=== PATIENT | male | born 1975 | race Asian ===

== ENCOUNTER 2021-03-11 12:35 | Inpatient (IN) | payer OTHER ==
[2021-03-11 14:09] VITALS: BMI 30.9
[2021-03-11] MEDS ORDERED: METHOCARBAMOL 500 MG TABLET PO PRN (15:54)
[2021-03-11] MEDS ORDERED: MAGNESIUM CITRATE 300 ML BOTTLE PO PRN (15:54)
[2021-03-11] MEDS ORDERED: MENTHOL/PHENOL 1 EACH UD MM PRN (15:54)
[2021-03-11] MEDS ORDERED: BISMUTH SUBSALICYLATE 524 MG/30 ML PO PRN (15:54)
[2021-03-11] MEDS ORDERED: LORazepam 1 MG TABLET PO PRN (15:54)
[2021-03-11] MEDS ORDERED: IBUPROFEN 400 MG TABLET (FP) PO PRN (15:54)
[2021-03-11] MEDS ORDERED: ONDANSETRON *ODT* 4 MG TABLET SL PRN (15:54)
[2021-03-11] MEDS ORDERED: MAG HYDROX/AL HYDROX/SIMETH 30 ML UNIT-DOSE CUP PO PRN (15:54)
[2021-03-11] MEDS ORDERED: MAGNESIUM HYDROX 2400MG/30ML ORAL SUSPENSION 30 ML CUP PO PRN (15:54)
[2021-03-11] MEDS ORDERED: ACETAMINOPHEN 325 MG TABLET (FP) PO PRN ×2 (15:54)
[2021-03-11] MEDS: hydrOXYzine PAMOATE 25 MG CAPSULE (FP) PO SCH ×2 (18:10→22:22)
[2021-03-11] MEDS: LORazepam 2 MG TABLET PO SCH ×2 (18:10→22:22)
[2021-03-11] MEDS: MELATONIN 5 MG TABLETS PO SCH (22:22)
[2021-03-11] MEDS: THIAMINE HCL 100 MG TABLET (FP) PO SCH (22:22)
[2021-03-11] MEDS: GABAPENTIN 400 MG CAPSULE PO SCH (22:22)
[2021-03-12] MEDS: LORazepam 2 MG TABLET PO SCH ×4 (06:25→22:06)
[2021-03-12] MEDS: GABAPENTIN 400 MG CAPSULE PO SCH ×3 (06:26→22:31)
[2021-03-12] MEDS: hydrOXYzine PAMOATE 25 MG CAPSULE (FP) PO SCH ×2 (06:26→10:46)
[2021-03-12 10:06] LABS: HEMATOCRIT 36.1 % (35.4-49); HEMOGLOBIN 12.4 GM/dL (11.7-16.9); MCH 33.2 pg (25.7-33.7); MCHC 34.3 g/dl (32.0-35.9); MEAN CELL VOLUME 96.8 fl (80-96); MEAN PLT VOLUME 7.9 fl (7.5-11.1); PLATELET COUNT 145 K/MM3 (134-434); RBC 3.73 M/mm3 (4.00-5.60); RDW 14.1 % (11.9-15.9); WHITE BLOOD COUNT 5.5 K/mm3 (4.0-10.0)
[2021-03-12] MEDS ORDERED: hydrOXYzine PAMOATE 25 MG CAPSULE (FP) PO PRN (10:13)
[2021-03-12 10:14] LABS: ALBUMIN 3.8 g/dl (3.4-5.0); BLOOD UREA NITROGEN 8.3 mg/dL (7-18)
[2021-03-12 10:15] LABS: BILIRUBIN,TOTAL 0.6 mg/dL (0.2-1)
[2021-03-12 10:16] LABS: TOT PROT 8.2 g/dl (6.4-8.2)
[2021-03-12 10:18] LABS: CALCIUM 7.8 mg/dL (8.5-10.1); CREATININE 0.8 mg/dL (0.55-1.3)
[2021-03-12] MEDS: PRENATAL VITAMINS W/ FOLIC ACID TABLET (FP) PO SCH (10:46)
[2021-03-12] MEDS: FOLIC ACID 1 MG TABLET (FP) PO SCH (10:46)
[2021-03-12 11:34] LABS: HIV INTERPRETATION NEGATIVE (NEGATIVE)
[2021-03-12] MEDS: THIAMINE HCL 100 MG TABLET (FP) PO SCH (22:04)
[2021-03-12] MEDS: MELATONIN 5 MG TABLETS PO SCH (22:04)
[2021-03-13] MEDS: GABAPENTIN 400 MG CAPSULE PO SCH ×3 (06:04→22:50)
[2021-03-13] MEDS: LORazepam 1 MG TABLET PO SCH ×4 (06:04→22:51)
[2021-03-13] MEDS: FOLIC ACID 1 MG TABLET (FP) PO SCH (10:19)
[2021-03-13] MEDS: PRENATAL VITAMINS W/ FOLIC ACID TABLET (FP) PO SCH (10:19)
[2021-03-13] MEDS ORDERED: AMMONIUM LACTATE 12% LOTION 225 GM BOTTLE TP SCH (11:45)
[2021-03-13] MEDS: MELATONIN 5 MG TABLETS PO SCH (22:50)
[2021-03-13] MEDS: THIAMINE HCL 100 MG TABLET (FP) PO SCH (22:50)
[2021-03-14] MEDS ORDERED: LORazepam 0.5 MG TABLET PO PRN
[2021-03-14] MEDS: LORazepam 0.5 MG TABLET PO SCH ×4 (05:09→22:33)
[2021-03-14] MEDS: GABAPENTIN 400 MG CAPSULE PO SCH ×3 (05:10→22:33)
[2021-03-14 08:06] LABS: SARS-CoV-2 NAA Not Detected (Not Detected)
[2021-03-14] MEDS: PRENATAL VITAMINS W/ FOLIC ACID TABLET (FP) PO SCH (10:51)
[2021-03-14] MEDS: FOLIC ACID 1 MG TABLET (FP) PO SCH (10:51)
[2021-03-14] MEDS: MELATONIN 5 MG TABLETS PO SCH (22:33)
[2021-03-14] MEDS: THIAMINE HCL 100 MG TABLET (FP) PO SCH (22:33)
[2021-03-15] MEDS ORDERED: LORazepam 0.5 MG TABLET PO ONE (05:00)
[2021-03-15] MEDS: GABAPENTIN 400 MG CAPSULE PO SCH (05:15)
[2021-03-15 09:11] VITALS: BP 142/97; PULSE 75; TEMP 96.9
[2021-03-15] MEDS: FOLIC ACID 1 MG TABLET (FP) PO SCH (12:24)
[2021-03-15] MEDS: PRENATAL VITAMINS W/ FOLIC ACID TABLET (FP) PO SCH (12:24)
== END 2021-03-15 10:00 | disposition home or self-care (01) | DRG 775 ==
LOC: YASAS 12:35 → Y3N 15:49
PROVIDERS: ADMIT Allergy & Immunology; ATTEND Allergy & Immunology
PROC: HZ2ZZZZ Detoxification Services for Substance Abuse Treatment (ICD-10-PCS; principal; 2021-03-11)
DX: F10.230 Alcohol dependence with withdrawal, uncomplicated (principal); G40.909 Epilepsy, unspecified, not intractable, without status epilepticus; R73.9 Hyperglycemia, unspecified; R74.01 Elevation of levels of liver transaminase levels; R03.0 Elevated blood-pressure reading, without diagnosis of hypertension
CPT/HCPCS: 36415; 80053; 85027; 86780; 87389; 93005; 93010; C9803; U0003; U0005

== ENCOUNTER 2022-07-09 12:37 | Inpatient (IN) | payer OTHER ==
[2022-07-09 13:57] VITALS: BMI 27.6
[2022-07-10] MEDS ORDERED: MAGNESIUM CITRATE 300 ML BOTTLE PO PRN (01:40)
[2022-07-10] MEDS ORDERED: MAGNESIUM HYDROX 2400MG/30ML ORAL SUSPENSION 30 ML CUP PO PRN (01:40)
[2022-07-10] MEDS ORDERED: P-EPHED 60MG/TRIPROLIDI 2.5MG TABLET PO PRN (01:40)
[2022-07-10] MEDS ORDERED: IBUPROFEN 400 MG TABLET (FP) PO PRN (01:40)
[2022-07-10] MEDS ORDERED: MAG HYDROX/AL HYDROX/SIMETH 30 ML UNIT-DOSE CUP PO PRN (01:40)
[2022-07-10] MEDS ORDERED: guaiFENesin 200 MG/10 ML 10 ML UNIT-DOSE CUPS PO PRN (01:40)
[2022-07-10] MEDS ORDERED: LOPERAMIDE HCL 2 MG CAPSULE PO PRN (01:40)
[2022-07-10] MEDS ORDERED: ACETAMINOPHEN 325 MG TABLET (FP) PO PRN (01:40)
[2022-07-10 09:35] LABS: PH,URINE 6.5 (5.0-8.0); URINE APPEARANCE CLEAR; URINE BILIRUBIN NEGATIVE (NEGATIVE); URINE COLOR YELLOW; URINE GLUCOSE (UA) NEGATIVE (NEGATIVE); URINE KETONE NEGATIVE (NEGATIVE); URINE LEUK ESTERASE NEGATIVE (NEGATIVE); URINE NITRITE NEGATIVE (NEGATIVE); URINE PROTEIN NEGATIVE (NEGATIVE)
[2022-07-10 09:37] LABS: HEMATOCRIT 34.3 % (35.4-49); HEMOGLOBIN 11.6 GM/dL (11.7-16.9); MCH 33.2 pg (25.7-33.7); MCHC 33.8 g/dl (32.0-35.9); MEAN CELL VOLUME 98.1 fl (80-96); MEAN PLT VOLUME 9.1 fl (7.5-11.1); PLATELET COUNT 141 10^3/uL (134-434); RDW 14.2 % (11.9-15.9); WHITE BLOOD COUNT 7.6 K/mm3 (4.0-10.0)
[2022-07-10 10:00] LABS: CALCIUM 9.4 mg/dL (8.5-10.1)
[2022-07-10 10:01] LABS: ALBUMIN 3.6 g/dl (3.4-5.0)
[2022-07-10 10:04] LABS: CREATININE 0.9 mg/dL (0.55-1.3); TOT PROT 7.4 g/dl (6.4-8.2)
[2022-07-10] MEDS: PRENATAL VITAMINS W/ FOLIC ACID TABLET (FP) PO SCH (10:21)
[2022-07-10 10:44] LABS: SYPHILIS W/ RPR CONF NON-REACTIVE (NONREACTIVE)
[2022-07-10] MEDS ORDERED: SENNOSIDES 8.6MG TABLET (FP) PO PRN (16:27)
[2022-07-10] MEDS: MELATONIN 5 MG TABLETS PO SCH (21:21)
[2022-07-10] MEDS: THIAMINE HCL 100 MG TABLET (FP) PO SCH (21:21)
[2022-07-10] MEDS: GABAPENTIN 300 MG CAPSULE PO SCH (21:22)
[2022-07-11] MEDS: NALTREXONE HCL 50 MG TABLET PO SCH (09:52)
[2022-07-11] MEDS: FOLIC ACID 1 MG TABLET (FP) PO SCH (09:52)
[2022-07-11] MEDS: PRENATAL VITAMINS W/ FOLIC ACID TABLET (FP) PO SCH (09:52)
[2022-07-11] MEDS: MELATONIN 5 MG TABLETS PO SCH (21:22)
[2022-07-11] MEDS: GABAPENTIN 300 MG CAPSULE PO SCH (21:22)
[2022-07-11] MEDS: THIAMINE HCL 100 MG TABLET (FP) PO SCH (21:22)
[2022-07-12] MEDS: NALTREXONE HCL 50 MG TABLET PO SCH (09:40)
[2022-07-12] MEDS: PRENATAL VITAMINS W/ FOLIC ACID TABLET (FP) PO SCH (09:40)
[2022-07-12] MEDS: FOLIC ACID 1 MG TABLET (FP) PO SCH (09:40)
[2022-07-12] MEDS: hydrOXYzine PAMOATE 25 MG CAPSULE (FP) PO PRN (09:41)
[2022-07-12] MEDS: THIAMINE HCL 100 MG TABLET (FP) PO SCH (21:23)
[2022-07-12] MEDS: GABAPENTIN 300 MG CAPSULE PO SCH (21:23)
[2022-07-12] MEDS: MELATONIN 5 MG TABLETS PO SCH (21:23)
[2022-07-13] MEDS: PRENATAL VITAMINS W/ FOLIC ACID TABLET (FP) PO SCH (09:53)
[2022-07-13] MEDS: FOLIC ACID 1 MG TABLET (FP) PO SCH (09:53)
[2022-07-13] MEDS: NALTREXONE HCL 50 MG TABLET PO SCH (09:53)
[2022-07-13] MEDS: GABAPENTIN 300 MG CAPSULE PO SCH (21:13)
[2022-07-13] MEDS: THIAMINE HCL 100 MG TABLET (FP) PO SCH (21:13)
[2022-07-13] MEDS: MELATONIN 5 MG TABLETS PO SCH (21:13)
[2022-07-14] MEDS: FOLIC ACID 1 MG TABLET (FP) PO SCH (09:53)
[2022-07-14] MEDS: NALTREXONE HCL 50 MG TABLET PO SCH (09:53)
[2022-07-14] MEDS: PRENATAL VITAMINS W/ FOLIC ACID TABLET (FP) PO SCH (09:53)
[2022-07-14] MEDS: THIAMINE HCL 100 MG TABLET (FP) PO SCH (21:17)
[2022-07-14] MEDS: MELATONIN 5 MG TABLETS PO SCH (21:17)
[2022-07-14] MEDS: GABAPENTIN 300 MG CAPSULE PO SCH (21:17)
[2022-07-15] MEDS: NALTREXONE HCL 50 MG TABLET PO SCH (09:47)
[2022-07-15] MEDS: PRENATAL VITAMINS W/ FOLIC ACID TABLET (FP) PO SCH (09:47)
[2022-07-15] MEDS: FOLIC ACID 1 MG TABLET (FP) PO SCH (09:47)
[2022-07-15] MEDS: MELATONIN 5 MG TABLETS PO SCH (21:16)
[2022-07-15] MEDS: GABAPENTIN 300 MG CAPSULE PO SCH (21:16)
[2022-07-15] MEDS: THIAMINE HCL 100 MG TABLET (FP) PO SCH (21:16)
[2022-07-16] MEDS: NALTREXONE HCL 50 MG TABLET PO SCH (09:00)
[2022-07-16] MEDS: PRENATAL VITAMINS W/ FOLIC ACID TABLET (FP) PO SCH (09:00)
[2022-07-16] MEDS: FOLIC ACID 1 MG TABLET (FP) PO SCH (09:01)
[2022-07-16] MEDS: MELATONIN 5 MG TABLETS PO SCH (21:13)
[2022-07-16] MEDS: GABAPENTIN 300 MG CAPSULE PO SCH (21:14)
[2022-07-16] MEDS: THIAMINE HCL 100 MG TABLET (FP) PO SCH (21:14)
[2022-07-17] MEDS: FOLIC ACID 1 MG TABLET (FP) PO SCH (09:43)
[2022-07-17] MEDS: NALTREXONE HCL 50 MG TABLET PO SCH (09:43)
[2022-07-17] MEDS: PRENATAL VITAMINS W/ FOLIC ACID TABLET (FP) PO SCH (09:43)
[2022-07-17] MEDS: THIAMINE HCL 100 MG TABLET (FP) PO SCH (21:27)
[2022-07-17] MEDS: MELATONIN 5 MG TABLETS PO SCH (21:27)
[2022-07-17] MEDS: GABAPENTIN 300 MG CAPSULE PO SCH (21:27)
[2022-07-18] MEDS: FOLIC ACID 1 MG TABLET (FP) PO SCH (10:21)
[2022-07-18] MEDS: PRENATAL VITAMINS W/ FOLIC ACID TABLET (FP) PO SCH (10:21)
[2022-07-18] MEDS: NALTREXONE HCL 50 MG TABLET PO SCH (10:21)
[2022-07-18] MEDS: MELATONIN 5 MG TABLETS PO SCH (21:25)
[2022-07-18] MEDS: THIAMINE HCL 100 MG TABLET (FP) PO SCH (21:25)
[2022-07-18] MEDS: GABAPENTIN 300 MG CAPSULE PO SCH (21:25)
[2022-07-19] MEDS: hydrOXYzine PAMOATE 25 MG CAPSULE (FP) PO PRN (06:29)
[2022-07-19] MEDS: PRENATAL VITAMINS W/ FOLIC ACID TABLET (FP) PO SCH (10:04)
[2022-07-19] MEDS: NALTREXONE HCL 50 MG TABLET PO SCH (10:04)
[2022-07-19] MEDS: FOLIC ACID 1 MG TABLET (FP) PO SCH (10:04)
[2022-07-19] MEDS: THIAMINE HCL 100 MG TABLET (FP) PO SCH (21:30)
[2022-07-19] MEDS: MELATONIN 5 MG TABLETS PO SCH (21:30)
[2022-07-19] MEDS: GABAPENTIN 300 MG CAPSULE PO SCH (21:30)
[2022-07-20] MEDS: NALTREXONE HCL 50 MG TABLET PO SCH (10:27)
[2022-07-20] MEDS: PRENATAL VITAMINS W/ FOLIC ACID TABLET (FP) PO SCH (10:28)
[2022-07-20] MEDS: FOLIC ACID 1 MG TABLET (FP) PO SCH (10:28)
[2022-07-20] MEDS: GABAPENTIN 300 MG CAPSULE PO SCH (21:25)
[2022-07-20] MEDS: MELATONIN 5 MG TABLETS PO SCH (21:25)
[2022-07-20] MEDS: THIAMINE HCL 100 MG TABLET (FP) PO SCH (21:25)
[2022-07-21] MEDS: PRENATAL VITAMINS W/ FOLIC ACID TABLET (FP) PO SCH (09:57)
[2022-07-21] MEDS: NALTREXONE HCL 50 MG TABLET PO SCH (09:57)
[2022-07-21] MEDS: FOLIC ACID 1 MG TABLET (FP) PO SCH (09:57)
[2022-07-21] MEDS: MELATONIN 5 MG TABLETS PO SCH (21:19)
[2022-07-21] MEDS: THIAMINE HCL 100 MG TABLET (FP) PO SCH (21:19)
[2022-07-21] MEDS: GABAPENTIN 300 MG CAPSULE PO SCH (21:19)
[2022-07-22] MEDS: NALTREXONE HCL 50 MG TABLET PO SCH (09:55)
[2022-07-22] MEDS: FOLIC ACID 1 MG TABLET (FP) PO SCH (09:55)
[2022-07-22] MEDS: PRENATAL VITAMINS W/ FOLIC ACID TABLET (FP) PO SCH (09:55)
[2022-07-22] MEDS: THIAMINE HCL 100 MG TABLET (FP) PO SCH (21:28)
[2022-07-22] MEDS: GABAPENTIN 300 MG CAPSULE PO SCH (21:28)
[2022-07-22] MEDS: MELATONIN 5 MG TABLETS PO SCH (21:28)
[2022-07-23] MEDS: NALTREXONE HCL 50 MG TABLET PO SCH (09:58)
[2022-07-23] MEDS: PRENATAL VITAMINS W/ FOLIC ACID TABLET (FP) PO SCH (09:58)
[2022-07-23] MEDS: FOLIC ACID 1 MG TABLET (FP) PO SCH (09:58)
[2022-07-23] MEDS: THIAMINE HCL 100 MG TABLET (FP) PO SCH (21:28)
[2022-07-23] MEDS: MELATONIN 5 MG TABLETS PO SCH (21:28)
[2022-07-23] MEDS: GABAPENTIN 300 MG CAPSULE PO SCH (21:28)
[2022-07-24] MEDS: PRENATAL VITAMINS W/ FOLIC ACID TABLET (FP) PO SCH (10:16)
[2022-07-24] MEDS: NALTREXONE HCL 50 MG TABLET PO SCH (10:16)
[2022-07-24] MEDS: FOLIC ACID 1 MG TABLET (FP) PO SCH (10:16)
[2022-07-24] MEDS: THIAMINE HCL 100 MG TABLET (FP) PO SCH (21:43)
[2022-07-24] MEDS: GABAPENTIN 300 MG CAPSULE PO SCH (21:43)
[2022-07-24] MEDS: MELATONIN 5 MG TABLETS PO SCH (21:43)
[2022-07-25] MEDS: FOLIC ACID 1 MG TABLET (FP) PO SCH (10:19)
[2022-07-25] MEDS: PRENATAL VITAMINS W/ FOLIC ACID TABLET (FP) PO SCH (10:19)
[2022-07-25] MEDS: NALTREXONE HCL 50 MG TABLET PO SCH (10:19)
[2022-07-25] MEDS: THIAMINE HCL 100 MG TABLET (FP) PO SCH (21:09)
[2022-07-25] MEDS: MELATONIN 5 MG TABLETS PO SCH (21:09)
[2022-07-25] MEDS: GABAPENTIN 300 MG CAPSULE PO SCH (21:09)
[2022-07-26] MEDS: FOLIC ACID 1 MG TABLET (FP) PO SCH (09:55)
[2022-07-26] MEDS: NALTREXONE HCL 50 MG TABLET PO SCH (09:55)
[2022-07-26] MEDS: PRENATAL VITAMINS W/ FOLIC ACID TABLET (FP) PO SCH (09:55)
[2022-07-26] MEDS: THIAMINE HCL 100 MG TABLET (FP) PO SCH (21:25)
[2022-07-26] MEDS: MELATONIN 5 MG TABLETS PO SCH (21:25)
[2022-07-26] MEDS: GABAPENTIN 300 MG CAPSULE PO SCH (21:25)
[2022-07-27] MEDS: FOLIC ACID 1 MG TABLET (FP) PO SCH (10:20)
[2022-07-27] MEDS: PRENATAL VITAMINS W/ FOLIC ACID TABLET (FP) PO SCH (10:20)
[2022-07-27] MEDS: NALTREXONE HCL 50 MG TABLET PO SCH (10:20)
[2022-07-27] MEDS: MELATONIN 5 MG TABLETS PO SCH (21:34)
[2022-07-27] MEDS: THIAMINE HCL 100 MG TABLET (FP) PO SCH (21:34)
[2022-07-27] MEDS: GABAPENTIN 300 MG CAPSULE PO SCH (21:34)
[2022-07-28] MEDS: PRENATAL VITAMINS W/ FOLIC ACID TABLET (FP) PO SCH (10:03)
[2022-07-28] MEDS: FOLIC ACID 1 MG TABLET (FP) PO SCH (10:03)
[2022-07-28] MEDS: NALTREXONE HCL 50 MG TABLET PO SCH (10:03)
[2022-07-28] MEDS: THIAMINE HCL 100 MG TABLET (FP) PO SCH (21:23)
[2022-07-28] MEDS: MELATONIN 5 MG TABLETS PO SCH (21:23)
[2022-07-28] MEDS: GABAPENTIN 300 MG CAPSULE PO SCH (21:24)
[2022-07-29] MEDS: PRENATAL VITAMINS W/ FOLIC ACID TABLET (FP) PO SCH (10:02)
[2022-07-29] MEDS: NALTREXONE HCL 50 MG TABLET PO SCH (10:02)
[2022-07-29] MEDS: FOLIC ACID 1 MG TABLET (FP) PO SCH (10:02)
[2022-07-29] MEDS: GABAPENTIN 300 MG CAPSULE PO SCH (21:19)
[2022-07-29] MEDS: THIAMINE HCL 100 MG TABLET (FP) PO SCH (21:19)
[2022-07-29] MEDS: MELATONIN 5 MG TABLETS PO SCH (21:19)
[2022-07-30] MEDS: NALTREXONE HCL 50 MG TABLET PO SCH (10:12)
[2022-07-30] MEDS: FOLIC ACID 1 MG TABLET (FP) PO SCH (10:12)
[2022-07-30] MEDS: PRENATAL VITAMINS W/ FOLIC ACID TABLET (FP) PO SCH (10:12)
[2022-07-30 11:31] VITALS: RESP 18
[2022-07-30] MEDS: THIAMINE HCL 100 MG TABLET (FP) PO SCH (21:34)
[2022-07-30] MEDS: GABAPENTIN 300 MG CAPSULE PO SCH (21:34)
[2022-07-30] MEDS: MELATONIN 5 MG TABLETS PO SCH (21:34)
[2022-07-31] MEDS: PRENATAL VITAMINS W/ FOLIC ACID TABLET (FP) PO SCH (10:15)
[2022-07-31] MEDS: FOLIC ACID 1 MG TABLET (FP) PO SCH (10:15)
[2022-07-31] MEDS: NALTREXONE HCL 50 MG TABLET PO SCH (10:15)
[2022-07-31] MEDS: GABAPENTIN 300 MG CAPSULE PO SCH (21:40)
[2022-07-31] MEDS: THIAMINE HCL 100 MG TABLET (FP) PO SCH (21:40)
[2022-07-31] MEDS: MELATONIN 5 MG TABLETS PO SCH (21:40)
[2022-08-01] MEDS: FOLIC ACID 1 MG TABLET (FP) PO SCH (10:19)
[2022-08-01] MEDS: PRENATAL VITAMINS W/ FOLIC ACID TABLET (FP) PO SCH (10:19)
[2022-08-01] MEDS: NALTREXONE HCL 50 MG TABLET PO SCH (10:19)
[2022-08-01] MEDS: MELATONIN 5 MG TABLETS PO SCH (21:27)
[2022-08-01] MEDS: GABAPENTIN 300 MG CAPSULE PO SCH (21:27)
[2022-08-01] MEDS: THIAMINE HCL 100 MG TABLET (FP) PO SCH (21:27)
[2022-08-02] MEDS: PRENATAL VITAMINS W/ FOLIC ACID TABLET (FP) PO SCH (09:57)
[2022-08-02] MEDS: NALTREXONE HCL 50 MG TABLET PO SCH (09:57)
[2022-08-02] MEDS: FOLIC ACID 1 MG TABLET (FP) PO SCH (09:58)
[2022-08-02] MEDS: MELATONIN 5 MG TABLETS PO SCH (21:28)
[2022-08-02] MEDS: THIAMINE HCL 100 MG TABLET (FP) PO SCH (21:28)
[2022-08-02] MEDS: GABAPENTIN 300 MG CAPSULE PO SCH (21:28)
[2022-08-03] MEDS: NALTREXONE HCL 50 MG TABLET PO SCH (10:05)
[2022-08-03] MEDS: FOLIC ACID 1 MG TABLET (FP) PO SCH (10:05)
[2022-08-03] MEDS: PRENATAL VITAMINS W/ FOLIC ACID TABLET (FP) PO SCH (10:05)
[2022-08-03 10:34] LABS: CALCIUM 9.3 mg/dL (8.5-10.1)
[2022-08-03 10:35] LABS: ALBUMIN 3.6 g/dl (3.4-5.0); BLOOD UREA NITROGEN 12.7 mg/dL (7-18)
[2022-08-03 10:38] LABS: CREATININE 1.1 mg/dL (0.55-1.3)
[2022-08-03 10:40] LABS: BILIRUBIN,TOTAL 0.5 mg/dL (0.2-1); TOT PROT 7.5 g/dl (6.4-8.2)
[2022-08-03] MEDS: GABAPENTIN 300 MG CAPSULE PO SCH (21:21)
[2022-08-03] MEDS: MELATONIN 5 MG TABLETS PO SCH (21:21)
[2022-08-03] MEDS: THIAMINE HCL 100 MG TABLET (FP) PO SCH (21:21)
[2022-08-04] MEDS: PRENATAL VITAMINS W/ FOLIC ACID TABLET (FP) PO SCH (10:05)
[2022-08-04] MEDS: FOLIC ACID 1 MG TABLET (FP) PO SCH (10:06)
[2022-08-04] MEDS: NALTREXONE HCL 50 MG TABLET PO SCH (10:06)
[2022-08-04] MEDS: GABAPENTIN 300 MG CAPSULE PO SCH (21:29)
[2022-08-04] MEDS: THIAMINE HCL 100 MG TABLET (FP) PO SCH (21:29)
[2022-08-04] MEDS: MELATONIN 5 MG TABLETS PO SCH (21:29)
[2022-08-05] MEDS: FOLIC ACID 1 MG TABLET (FP) PO SCH (10:22)
[2022-08-05] MEDS: PRENATAL VITAMINS W/ FOLIC ACID TABLET (FP) PO SCH (10:22)
[2022-08-05] MEDS: NALTREXONE HCL 50 MG TABLET PO SCH (10:22)
[2022-08-05] MEDS: THIAMINE HCL 100 MG TABLET (FP) PO SCH (21:21)
[2022-08-05] MEDS: GABAPENTIN 300 MG CAPSULE PO SCH (21:21)
[2022-08-05] MEDS: MELATONIN 5 MG TABLETS PO SCH (21:21)
[2022-08-06 06:32] VITALS: BP 154/92; PULSE 67; TEMP 97.7
[2022-08-06] MEDS: PRENATAL VITAMINS W/ FOLIC ACID TABLET (FP) PO SCH (09:41)
[2022-08-06] MEDS: FOLIC ACID 1 MG TABLET (FP) PO SCH (09:42)
[2022-08-06] MEDS: NALTREXONE HCL 50 MG TABLET PO SCH (09:42)
== END 2022-08-06 10:00 | disposition home or self-care (01) | DRG 772 ==
LOC: YASAS 12:37 → Y3W 20:03
PROVIDERS: ADMIT Allergy & Immunology; ATTEND Surgery
PROC: HZ42ZZZ Group Counseling for Substance Abuse Treatment, Cognitive-Behavioral (ICD-10-PCS; principal; 2022-07-09)
DX: F10.20 Alcohol dependence, uncomplicated (principal); R03.0 Elevated blood-pressure reading, without diagnosis of hypertension; R29.810 Facial weakness; R26.89 Other abnormalities of gait and mobility; R74.8 Abnormal levels of other serum enzymes; R29.6 Repeated falls; Z99.89 Dependence on other enabling machines and devices; Z86.69 Personal history of other diseases of the nervous system and sense organs
CPT/HCPCS: 36415; 80053; 81003; 85027; 86780; 86803; C9803-CS; U0003; U0005

== ENCOUNTER 2024-10-13 13:07 | Inpatient (IN) | payer OTHER ==
[2024-10-13 14:00] VITALS: BMI 29.3
[2024-10-13] MEDS ORDERED: chlordiazePOXIDE HCL 25 MG CAPSULE PO PRN (14:05)
[2024-10-13] MEDS ORDERED: guaiFENesin 600 MG TABLET.ER (FP) PO PRN (14:16)
[2024-10-13] MEDS ORDERED: BENZOCAINE/MENTHOL (CHLORASEPTIC ) LOZENGE MM PRN (14:16)
[2024-10-13] MEDS ORDERED: MAGNESIUM HYDROX 2400MG/30ML ORAL SUSPENSION 30 ML CUP PO PRN (14:16)
[2024-10-13] MEDS ORDERED: ACETAMINOPHEN 325 MG TABLET (FP) PO PRN (14:16)
[2024-10-13] MEDS ORDERED: ONDANSETRON *ODT* 4 MG TABLET SL PRN (14:16)
[2024-10-13] MEDS ORDERED: LOPERAMIDE HCL 2 MG CAPSULE PO PRN (14:16)
[2024-10-13] MEDS ORDERED: IBUPROFEN 600 MG TABLET (FP) PO PRN (14:16)
[2024-10-13] MEDS ORDERED: NALOXONE (NARCAN) HCL 4 MG/0.1 ML SPRAY NS PRN (14:16)
[2024-10-13] MEDS ORDERED: MAG HYDROX/AL HYDROX/SIMETH 30 ML UNIT-DOSE CUP PO PRN (14:16)
[2024-10-13] MEDS ORDERED: IBUPROFEN 400 MG TABLET (FP) PO PRN (14:16)
[2024-10-13] MEDS ORDERED: BISMUTH SUBSALICYLATE 524 MG/30 ML PO PRN (14:16)
[2024-10-13] MEDS ORDERED: POLYETHYLENE GLYCOL (HEALTHYLAX) 3350 17 GM PACKET PO PRN (14:16)
[2024-10-13] MEDS ORDERED: BENZONATATE 200 MG CAPSULE PO PRN (14:16)
[2024-10-13] MEDS ORDERED: DICYCLOMINE HCL 10 MG CAPSULE PO PRN (14:16)
[2024-10-13] MEDS: levETIRAcetam 500 MG TABLET (FP) PO ONE (15:54)
[2024-10-13] MEDS: chlordiazePOXIDE HCL 25 MG CAPSULE PO SCH (18:00)
[2024-10-13] MEDS: levETIRAcetam 500 MG TABLET (FP) PO SCH (22:23)
[2024-10-13] MEDS: MELATONIN 5 MG TABLETS PO SCH (22:23)
[2024-10-13] MEDS: THIAMINE 100 MG TABLET PO SCH (22:23)
[2024-10-14 10:01] LABS: HEMATOCRIT 39.1 % (35.4-49); HEMOGLOBIN 13.3 GM/dL (11.7-16.9); MCH 32.6 pg (25.7-33.7); MCHC 34.1 g/dl (32.0-35.9); MEAN CELL VOLUME 95.6 fl (80-96); MEAN PLT VOLUME 7.8 fl (7.5-11.1); PLATELET COUNT 252 10^3/uL (134-434); RBC 4.09 M/mm3 (4.00-5.60); RDW 12.8 % (11.9-15.9); WHITE BLOOD COUNT 5.3 K/mm3 (4.0-10.0)
[2024-10-14 10:08] LABS: POTASSIUM 4.2 mmol/L (3.5-5.1)
[2024-10-14 10:17] LABS: ALBUMIN 3.3 g/dl (3.4-5.0); BLOOD UREA NITROGEN 7.6 mg/dL (7-18); CALCIUM 8.8 mg/dL (8.5-10.1)
[2024-10-14 10:19] LABS: CREATININE 0.9 mg/dL (0.55-1.3)
[2024-10-14 10:21] LABS: BILIRUBIN,TOTAL 0.8 mg/dL (0.2-1); TOT PROT 7.3 g/dl (6.4-8.2)
[2024-10-14] MEDS: FOLIC ACID 1 MG TABLET (FP) PO SCH (10:37)
[2024-10-14] MEDS: PRENATAL VITAMINS W/ FOLIC ACID TABLET (FP) PO SCH (10:37)
[2024-10-15] MEDS: chlordiazePOXIDE HCL 25 MG CAPSULE PO SCH (06:00)
[2024-10-16] MEDS ORDERED: chlordiazePOXIDE HCL 10 MG CAPSULE PO PRN
[2024-10-16] MEDS: chlordiazePOXIDE HCL 10 MG CAPSULE PO SCH (05:37)
[2024-10-16] MEDS: METHOCARBAMOL 500 MG TABLET PO PRN (09:31)
[2024-10-16] MEDS: hydrOXYzine PAMOATE 25 MG CAPSULE (FP) PO PRN (09:31)
[2024-10-16] MEDS: NALTREXONE HCL 50 MG TABLET PO SCH (17:24)
[2024-10-17] MEDS: chlordiazePOXIDE HCL 10 MG CAPSULE PO SCH (05:49)
[2024-10-18] MEDS: chlordiazePOXIDE HCL 10 MG CAPSULE PO ONE (05:43)
[2024-10-18 06:27] VITALS: RESP 16; TEMP 97.7
[2024-10-18 09:34] VITALS: BP 125/88; PULSE 75
== END 2024-10-18 12:10 | disposition other institution (70) | DRG 775 ==
LOC: YASAS 13:07 → Y6N 14:50
PROVIDERS: ADMIT Neuromusculoskeletal Medicine & OMM; ATTEND Surgery
PROC: HZ2ZZZZ Detoxification Services for Substance Abuse Treatment (ICD-10-PCS; principal; 2024-10-13)
DX: F10.230 Alcohol dependence with withdrawal, uncomplicated (principal); G40.909 Epilepsy, unspecified, not intractable, without status epilepticus; Z59.00 Homelessness unspecified
CPT/HCPCS: 36415; 80053; 85027; 86780; 87811; 93005; 93010

== ENCOUNTER 2024-10-18 12:20 | Inpatient (IN) | payer OTHER ==
[2024-10-18] MEDS ORDERED: IBUPROFEN 600 MG TABLET (FP) PO PRN (12:21)
[2024-10-18] MEDS ORDERED: NALOXONE (NARCAN) HCL 4 MG/0.1 ML SPRAY NS PRN (12:21)
[2024-10-18] MEDS ORDERED: hydrOXYzine PAMOATE 25 MG CAPSULE (FP) PO PRN (12:21)
[2024-10-18] MEDS ORDERED: BENZONATATE 200 MG CAPSULE PO PRN (12:21)
[2024-10-18] MEDS ORDERED: NICOTINE POLACRILEX 2 MG GUM BUC PRN (12:21)
[2024-10-18] MEDS ORDERED: MAG HYDROX/AL HYDROX/SIMETH 30 ML UNIT-DOSE CUP PO PRN (12:21)
[2024-10-18] MEDS ORDERED: MAGNESIUM HYDROX 2400MG/30ML ORAL SUSPENSION 30 ML CUP PO PRN (12:21)
[2024-10-18] MEDS ORDERED: guaiFENesin 600 MG TABLET.ER (FP) PO PRN (12:21)
[2024-10-18] MEDS ORDERED: BENZOCAINE/MENTHOL (CHLORASEPTIC ) LOZENGE MM PRN (12:21)
[2024-10-18] MEDS ORDERED: IBUPROFEN 400 MG TABLET (FP) PO PRN (12:21)
[2024-10-18] MEDS ORDERED: LOPERAMIDE HCL 2 MG CAPSULE PO PRN (12:21)
[2024-10-18] MEDS ORDERED: NICOTINE POLACRILEX 2 MG LOZENGE BC PRN (12:21)
[2024-10-18] MEDS ORDERED: POLYETHYLENE GLYCOL (HEALTHYLAX) 3350 17 GM PACKET PO PRN (12:21)
[2024-10-18] MEDS: FOLIC ACID 1 MG TABLET (FP) PO SCH (14:03)
[2024-10-18] MEDS: THIAMINE 100 MG TABLET PO SCH (22:04)
[2024-10-18] MEDS: levETIRAcetam 500 MG TABLET (FP) PO SCH (22:04)
[2024-10-18] MEDS: MELATONIN 5 MG TABLETS PO SCH (22:04)
[2024-10-19] MEDS: PRENATAL VITAMINS W/ FOLIC ACID TABLET (FP) PO SCH (09:58)
[2024-10-19] MEDS: FOLIC ACID 1 MG TABLET (FP) PO SCH (09:58)
[2024-10-19] MEDS: NALTREXONE HCL 50 MG TABLET PO SCH (09:58)
[2024-10-25] MEDS ORDERED: BENZOCAINE/MENTHOL (CHLORASEPTIC ) LOZENGE MM PRN (16:53)
[2024-10-25] MEDS ORDERED: BENZOCAINE 20 % GEL TUBE MM PRN (16:53)
[2024-10-25] MEDS ORDERED: P-EPHED 60MG/TRIPROLIDI 2.5MG TABLET PO PRN (16:54)
[2024-10-25] MEDS: AMOX TR/POT CLAV 500MG/125MG TABLETS (FP) PO SCH (19:03)
[2024-10-25] MEDS: OXYMETAZOLINE 0.05% NASAL SOLUTION 15 ML BOTTLE NS PRN (21:31)
[2024-10-25] MEDS: CHLORHEXIDINE GLUCONATE 0.12% 15ML CUP MM SCH (21:32)
[2024-10-26] MEDS: levETIRAcetam 500 MG TABLET (FP) PO SCH (09:46)
[2024-10-26 17:10] LABS: MAGNESIUM 2.5 mg/dL (1.8-2.4)
[2024-10-26 17:11] LABS: INR 0.97 (0.83-1.09); PROTHROMBIN TIME (PATIENT) 11.2 SEC (9.7-13.0)
[2024-10-26] MEDS: MELATONIN 5 MG TABLETS PO SCH (22:41)
[2024-10-27] MEDS: ACETAMINOPHEN 325 MG TABLET (FP) PO PRN (22:00)
[2024-10-30] MEDS: levETIRAcetam 250 MG TABLET PO SCH (10:21)
[2024-11-06 16:17] VITALS: RESP 18
[2024-11-07] MEDS: NALTREXONE MICROSPHERES (VIVITROL) 380 MG DISP.SYRIN IM ONE ×2 (12:16→15:17)
[2024-11-07] MEDS ORDERED: SODIUM CHLORIDE NASAL SPRAY 44 ML BOTTLE NS PRN (14:19)
[2024-11-07] MEDS ORDERED: guaiFENesin 600 MG TABLET.ER (FP) PO PRN (14:20)
[2024-11-07] MEDS ORDERED: BENZONATATE 200 MG CAPSULE PO PRN (14:20)
[2024-11-08 06:47] VITALS: BP 127/96; PULSE 65; TEMP 96.9
[2024-11-08] MEDS: NALOXONE (NYS OPIOID OVERDOSE PROGRAM) 4 MG/0.1 ML SPRAY NS SCH (09:32)
== END 2024-11-08 09:40 | disposition home or self-care (01) | DRG 775 ==
LOC: YASAS 12:20 → Y3NR 12:21 → Y5N 10-19 10:49 → Y3NR 10-26 13:31 → Y5N 10-27 19:26
PROVIDERS: ADMIT Psychiatry & Neurology Pain Medicine; ATTEND Psychiatry & Neurology Pain Medicine
PROC: HZ2ZZZZ Detoxification Services for Substance Abuse Treatment (ICD-10-PCS; principal; 2024-10-18)
DX: F10.20 Alcohol dependence, uncomplicated (principal); U07.1 COVID-19; G40.909 Epilepsy, unspecified, not intractable, without status epilepticus; J39.8 Other specified diseases of upper respiratory tract; K02.9 Dental caries, unspecified; K05.10 Chronic gingivitis, plaque induced; Z56.0 Unemployment, unspecified
CPT/HCPCS: 0241U-QW; 36415; 80061; 82140; 82652; 82962; 83036; 83735; 85610; 86803; J2315